=== PATIENT | female | born 1970 | race Caucasian/White ===

== ENCOUNTER 2016-07-31 16:31 | Emergency (ER) | payer OTHER ==
[~2016-07-31] VITALS: Ht 167.6 cm; Wt 69.0 kg
[~2016-07-31 16:31] MED LIST: FERR325T PO; FLUT50SP EACH NARE
[2016-07-31 16:45] VITALS: BP 143/86; PULSE 109; RESP 16; TEMP 98.7; O2SAT 96
[2016-07-31 17:02] LABS: BLOOD, URINE NEG (NEG); GLUCOSE,URINE NEG (NEG); KETONE, URINE NEG (NEG); NITRITE,URINE NEG (NEG); PH, URINE 6.5 (5.0-8.5)
[2016-07-31 17:06] LABS: URINE COLOR YELLOW (YELLW/STRAW)
[2016-07-31 17:07] LABS: COMMENT (UR) CULT NOT INDICATED; CULTURE IF INDICATED CULT NOT INDICATED
[2016-07-31] MEDS ORDERED: FLUT1SPR22 (17:31)
[2016-07-31] MEDS ORDERED: HYDR12.57 PO (17:31)
--- NOTE | 2016-07-31 17:43 | PD ---
HPI Chief Complaint: Cold / Flu Symptoms Time Seen by Provider: 17:43 Travel History International Travel<30 days: No Contact w/Intl Traveler<30days: No Traveled to known affect area: No History of Present Illness HPI 45-year-old female presents to the ED for evaluation of 5 day history of malaise , dull headaches, palpitations, decreased appetite, diarrhea, subjective fevers and vaginal discharge. Gradual onset. Patient states headaches are similar to previous headaches and responsive to treatment with ibuprofen. Patient denies fevers, cold or flu symptoms, shortness of breath, chest pain, decreased appetite, abdominal pain, vomiting, changes in bowel habits, dysuria, back pain. Patient states that she just returned from [place]. She denies sick contacts. Patient endorses sexual relations with a single female partner. Vaginal discharge described as white, thick. She's been treating her vaginal symptoms with topical Monistat, states that discharge is somewhat improved today. PFSH Past Medical History Asthma: Yes Anxiety: Yes Depression: Yes Cancer: No Cardiovascular Problems: Yes COPD: No Diabetes: No Diminished Hearing: No Endocrine: No Genitourinary: No Hepatitis: No Hiatal Hernia: No Hypertension: Yes Immune Disorder: No Musculoskeletal: Yes (RESTLESS LEGS) Neurologic: No Psychiatric: No Reproductive: Yes Respiratory: Yes (ASTHMA) Immunizations Current: Yes Sleep Apnea: No Thyroid Disease: No Tetanus Vaccination: > 5 Years Influenza Vaccination: Yes ?: Not Past Surgical History AICD: No Hysterectomy: Yes Joint Replacement: No Oral Surgery: Yes (WISDOM TEETH EXTRACTED) Pacemaker: No Other Surgery: Yes Social History Alcohol Use: Yes (SOCIAL) Tobacco Use: No Substance Use: No Allergies-Medications (Allergen,Severity, Reaction): Coded Allergies: No Known Allergies (Verified , 07/31/16) Reported Meds & Prescriptions Reported Meds & Active Scripts Active Cipro (Ciprofloxacin HCl) 500 Mg Tab 500 Mg PO BID 3 Days Reported Allergy Nasal [place] 24 Ho (Fluticasone Propionate (Nasal)) 50 Mcg/Act Spr Hydrochlorothiazide 12.5 Mg Cap Unknown Dose PO DIRECTED Review of Systems Except as stated in HPI: all other systems reviewed are Neg Physical Exam Narrative GENERAL: Well-nourished, well-developed nontoxic appearing white female in no acute distress. SKIN: Warm and dry. HEAD: Normocephalic. EYES: No scleral icterus. No injection or drainage. ENT: Pearly kaur tympanic members bilaterally. Oropharynx without erythema, edema or exudate. NECK: Supple, trachea midline. No JVD or lymphadenopathy. CARDIOVASCULAR: Regular rate and rhythm without murmurs, gallops, or rubs. RESPIRATORY: Breath sounds clear and equal bilaterally. No accessory muscle use. GASTROINTESTINAL: Abdomen soft, non-tender, nondistended. Active bowel sounds. No suprapubic tenderness. GENITOURINARY: Normal external genitalia without lesions or erythema. Vaginal vault without blood. Small amount of pale, thin white drainage. Unable to evaluate the cervical os secondary to the patient's discomfort. No cervical motion tenderness. Uterus nontender and nonenlarged. Bilateral adnexa nontender without masses. MUSCULOSKELETAL: No cyanosis, or edema. Patient is noted to walk with a normal gait. BACK: Nontender without obvious deformity. No CVA tenderness. Data Data Last Documented VS Vital Signs Date Time Temp Pulse Resp B/P Pulse Ox O2 Delivery O2 Flow Rate FiO2 07/31/16 18:55 18 97 Room Air 07/31/16 18:55 98.7 97 136/70 Orders Urinalysis - C+S If Indicated (07/31/16 16:48) ^ Insert Iv (07/31/16 17:54) Sodium Chlor 0.9% 1000 Ml Inj (Ns 1000 M (07/31/16 18:00) Wet Prep Profile (07/31/16 17:54) Labs Laboratory Tests Test 07/31/16 07/31/16 16:50 18:20 Urine Color YELLOW Urine Turbidity CLEAR Urine pH 6.5 Urine Specific [place] 1.023 Urine Protein NEG mg/dL Urine Glucose (UA) NEG mg/dL Urine Ketones NEG mg/dL Urine Occult Blood NEG Urine Nitrite NEG Urine Bilirubin NEG Urine Leukocyte Esterase NEG Urine Squamous Epithelial 6-8 /hpf Cells Microscopic Urinalysis Comment CULT NOT INDICATED Clue Cells (Wet Prep) NONE SEEN Vaginal Trichomonas (Wet Prep) NONE SEEN Vaginal Yeast (Wet Prep) NONE SEEN MDM Medical Decision Making Medical Screen Exam Complete: Yes Emergency Medical Condition: Yes Differential Diagnosis Viral syndrome versus traveler's diarrhea versus vaginal candidiasis versus UTI versus dehydration versus other Narrative Course 45-year-old female presents to the ED for evaluation of 5 day history of malaise , dull headaches, palpitations, decreased appetite, diarrhea, subjective fevers and vaginal discharge. Gradual onset. Headaches similar to previous, responsive to treatment with ibuprofen, resolved on presentation. Endorses sexual relations with a single female partner. Vaginal discharge described as white, thick. Patient states that she just returned from [place]. Denies sick contacts. States vaginal symptoms are improved today. Remaining ROS negative. Vitals reviewed. Patient tachycardic on presentation. Physical exam reveals a nontoxic-appearing white female in no acute distress. Abdominal exam is completely benign. Pelvic exam reveals scant amount of thin white discharge. IV was established. Patient was administered a liter of IV fluids. No culture indicated of the UA. Wet prep negative. Suspect this is dehydration related to the patient's episodic diarrhea. Possibly traveler's or infectious diarrhea. I provided the patient with a prescription for Cipro 500 mg twice a day 3 days. She is instructed to take these antibiotics if her symptoms do not improve in 48 hours. She is also instructed to eat a bland diet and gradually reintroduce new foods, follow-up with the primary care provider. We discussed reasons to return to the ED. She indicated understanding of the instructions and was amenable to plan of care. This patient is stable and discharged home. Diagnosis Primary Impression: Diarrhea Qualified Code: A09 - Diarrhea of presumed infectious origin Additional Impression: Vaginal discharge Referrals: Primary Care Physician Patient Instructions: Acute Diarrhea (GEN), General Instructions, Nutrition Tips for Relief of Diarrhea (ED) Additional Instructions: Rest, hydrate. [place] diet for the next few days and gradually reintroduce new foods. Begin the antibiotics in 48 hours if diarrhea persists. Tylenol or ibuprofen as needed for body aches and fever. Follow-up with primary care provider this week. Return to the ED for any urgent or emergent medical condition. Med/Other Pt SpecificInfo: Prescription(s) given Scripts Ciprofloxacin (Cipro)500 Mg Ycy465 Mg PO BID 3 Days Ref 0 Prov:Tash Alicea MD 07/31/16 Disposition: 01 DISCHARGE HOME Condition: Stable Nida Lopez Jul 31, 2016 17:43
[2016-07-31] MEDS ORDERED: SODIUM CHLOR 0.9% 1000 ML INJ 1,000 ML IV ONE (18:00)
[2016-07-31] MEDS ORDERED: CIPR-9 PO (18:37)
[2016-07-31 18:55] VITALS: BP 136/70; PULSE 97; RESP 18; TEMP 98.7; O2SAT 97
== END 2016-07-31 19:25 | disposition home or self-care (01) ==
LOC: PHED 16:31
DX: R19.7 Diarrhea, unspecified (principal); N89.8 Other specified noninflammatory disorders of vagina; R00.0 Tachycardia, unspecified; I10 Essential (primary) hypertension; J45.909 Unspecified asthma, uncomplicated
CPT/HCPCS: 81001; 87210; 96360; 99284; J7030